=== PATIENT | male | born 1945 | race Caucasian/White ===

== ENCOUNTER 2021-05-17 05:57 | Outpatient (CLI) | payer MEDICARE, OTHER ==
[~2021-05-17] VITALS: Ht 175.3 cm; Wt 83.4 kg
[~2021-05-17 05:57] MED LIST: CHOLESTEROL PILL; CIPR500T78 PO; HYDR1TAB86 PO; LEVO500T69 PO; METR500T PO; SMV10T PO
[2021-05-17] MEDS ORDERED: MELO15TA39 PO (13:02)
[2021-05-17] MEDS ORDERED: CARB1TAB19 PO (13:02)
[2021-05-17] MEDS ORDERED: LISI10TA25 PO (13:03)
== END 2021-05-17 13:05 | disposition home or self-care (01) ==
LOC: PREOP 05:57
PROVIDERS: ATTEND Surgery
DX: Z01.818 Encounter for other preprocedural examination (principal)

== ENCOUNTER 2021-05-20 10:13 | Day surgery (SDC) | payer MEDICARE, OTHER ==
[~2021-05-20] VITALS: Ht 175.3 cm; Wt 83.4 kg
[2021-05-20] VITALS (11 sets, daily range): BP systolic 131–175; BP diastolic 66–96
[~2021-05-20 10:13] MED LIST changes: +CARB1TAB19 PO; +LISI10TA25 PO; +MELO15TA39 PO
[2021-05-20] MEDS: LACTATED RINGERS 1,000 ML IV PRN ×2 (10:52→12:28)
[2021-05-20] MEDS ORDERED: ceFAZolin 2 GM IV Premixed 50 ML IV ONE (11:00)
--- NOTE | 2021-05-20 11:09 | Progress Note-Pre Operative ---
Pre-Operative Progress Note H&P Reviewed The H&P was reviewed, patient examined and no changes noted. Date Seen by Provider: May 20, 2021 Time Seen by Provider: 11:00 Date H&P Reviewed: May 20, 2021 Time H&P Reviewed: 11:00 Pre-Operative Diagnosis: right inguinal hernia, screening o RAMIRO MURILLO MD May 20, 2021 11:09
[2021-05-20] MEDS ORDERED: HYDR-3817 PO (11:10)
--- NOTE | 2021-05-20 11:10 | Discharge Inst-Surgical ---
D/C Lap Instructions-LIDIA New, Converted, or Re-Newed RX: RX on Chart Follow Up Appt in 2 weeks Activity as tolerated No driving for 24 hours No driving while on pain medications Incentive Spirometry use every 2 hours while awake Regular Diet Symptoms to Report: Fever over 101 degree F, Nausea/Vomiting Infection Signs and Symptoms to report: Increased redness, Foul odor of wound, Increased drainage Bathing instructions: May shower Operative Area Clean/Dry; Keep incision clean/dry If any problems/questions: Contact your physician or go to Emergency Room RAMIRO MURILLO MD May 20, 2021 11:10
[2021-05-20] MEDS ORDERED: ACETAMINOPHEN 325 MG TABLET PO PRN (11:15)
[2021-05-20] MEDS ORDERED: morphine INJ 10 MG/ML 1ML (SYR OR VIAL) IVP PRN ×2 (11:15)
[2021-05-20] MEDS ORDERED: oxyCODONE/APAP 5/325MG (PERCOCET 5) TABLET PO PRN (11:15)
[2021-05-20] MEDS ORDERED: ONDANSETRON 4 MG/2 ML (SDV) Z0FRAN IVP PRN ×2 (11:15→14:15)
[2021-05-20] MEDS ORDERED: LIDOCAINE/EPI 1%-1:200,000 (XYLOCAINE) 30 ML VIAL ONE (11:20)
[2021-05-20] MEDS ORDERED: proPOfol 200 MG/20 ML (DIPRIVAN) VIAL IV ONE (12:13)
[2021-05-20] MEDS ORDERED: fentaNYL INJ 100 MCG/2 ML AMP ONE ×2 (12:13→13:40)
[2021-05-20] MEDS ORDERED: LIDOCAINE PF 2% 5 ML (XYLOCAINE) VIAL ONE (12:13)
[2021-05-20] MEDS ORDERED: morphine PF (DURAMORPH) 10 MG/10 ML AMP ONE (13:00)
[2021-05-20] MEDS ORDERED: GLYCOPYRROLATE 0.2 MG/ML (ROBINUL) 2 ML VIAL ONE (13:40)
[2021-05-20] MEDS ORDERED: NEOSTIGMINE 3 MG/3 ML VIAL ONE (13:40)
--- NOTE | 2021-05-20 13:50 | Progress Note-Post Operative ---
Post-Operative Progess Note Surgeon (s)/Dcs Engineer (s) Surgeon Dr. Hossein Otoole M.D. Dcs Engineer: Santiago Carrasco AIRPORT SCREENER Pre-Operative Diagnosis right inguinal hernia, screening colo Post-Operative Diagnosis right indirect reducible inguinal hernia, mild stage II external and internal hemorrhoids, mild sigmoid diverticulosis Procedure & Operative Findings Date of Procedure 05/20/21 Procedure Performed/Findings Laparoscopic right inguinal hernia repair with mesh, colonoscopy Anesthesia Type GET Estimated Blood Loss Estimated blood loss (mL): Minimal Specimens/Packing Specimens Removed None SANTIAGO CARRASCO AIRPORT SCREENER May 20, 2021 13:50
[2021-05-20] MEDS ORDERED: SEVOFLURANE (ULTANE) 15 ML INHAL SOLN ONE (13:55)
[2021-05-20] MEDS ORDERED: ROCURONIUM 50 MG/5 ML (ZEMURON) VIAL IV ONE (13:55)
[2021-05-20] MEDS ORDERED: morphine INJ 10 MG/ML 1ML (SYR OR VIAL) IVP ONE (14:15)
[2021-05-20] MEDS ORDERED: fentaNYL INJ 100 MCG/2 ML AMP IVP ONE (14:15)
--- NOTE | 2021-05-20 22:33 | OPERATIVE REPORT ---
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 POSTOPERATIVE DIAGNOSES: Reducible right indirect inguinal hernia, mild chronic stage II external and internal hemorrhoids, mild to moderate sigmoid diverticulosis. PROCEDURE: Laparoscopic reducible right inguinal hernia repair with mesh and colonoscopy. SURGEON: Ramiro Murillo MD ANESTHESIA: General endotracheal. ESTIMATED BLOOD LOSS: Minimal. FINDINGS: Reducible right indirect inguinal hernia, mild chronic stage II external and internal hemorrhoids, mild to moderate sigmoid diverticulosis. DISPOSITION: The patient tolerated the procedure well. INDICATIONS: The patient is a 75-year-old male known to us. He was referred over to us for symptomatic right inguinal hernia; however, he states that he has had for the past year; however, has grown larger in size and become painful, especially upon exertion. Upon examination, he was found to have a right inguinal hernia, which is tender to palpation; however, reducible. He is also in need of a followup screening colonoscopy. 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 DESCRIPTION OF PROCEDURE: The patient was brought to the operating room, laid supine on the table. After adequate IV pain and sedative medications and general endotracheal intubation, the abdomen was prepped and draped in standard surgical fashion. An area in the left lower abdominal quadrant was anesthetized using 1% lidocaine and a transverse skin incision made using a 15 blade. An 0 silk suture was applied to the medial aspect incision for retraction and a Veress needle inserted with low opening pressure of 0 mmHg. The abdomen was then insufflated to 15 mmHg pressure. The Veress needle removed and a 5 mm XL trocar placed followed by a 5 mm 45-degree angle laparoscope visualizing the peritoneal cavity. There were some omental adhesions towards the abdominal wall from his previous colectomy. There was a right indirect inguinal hernia identified, which was reducible. There was no left inguinal hernia component. Under direct visualization, we then proceeded to place an infraumbilical 10 mm port after the skin and peritoneal lining were anesthetized using 0.5% Marcaine with epinephrine and a transverse skin incision made using 15 blade. In a similar manner, a right lateral 5 mm port was placed. The patient was then placed in a Trendelenburg position. The peritoneal lining was then opened starting laterally towards the conjoined tendon and inguinal ligament laterally using the Sonicision. We then proceeded medially until Tato's ligament was identified. We then proceeded with inferior dissection encompassing the hernia sac as well as identified cord lipoma. The cord and its surrounding contents identified and spared throughout the process. Good hemostasis was observed. A medium size 3DMax polypropylene mesh was then placed into the defect and tacked to Tato's ligament with an AbsorbaTack into the inguinal ligament laterally. The peritoneal lining was then placed over the mesh and a few absorbable tacks placed to keep this in place with visualization of good hemostasis. The 10 mm port site fascia and peritoneum were then closed under direct visualization using a Rafa-Selene device and 0 Vicryl suture. The abdomen was desufflated and remaining ports removed. All skin incisions were closed using 4-0 Monocryl running subcuticular sutures. Wounds were then cleaned and covered with Dermabond. The patient was then placed in frog leg position and a digital rectal examination was performed, which revealed chronic stage II external and internal hemorrhoids, not actively edematous nor inflamed and no bleeding. Normal sphincter tone was felt and there were no palpable masses. Prostate gland was palpable and appeared normal. The endoscope was then intubated to the anus and rectum gently insufflated. The endoscope was then advanced through the valves of Lam of the rectum with no polyps or any neoplasms identified. Through the sigmoid colon, mild to moderate sigmoid diverticulosis identified. The endoscope was then advanced to the remainder of the descending, transverse to the ileocolonic anastomosis, which appeared normal with no recurrent lesions. The endoscope was slowly withdrawn while taking a second look and suctioning of residual air with no additional findings. The patient tolerated the procedure well. He will be instructed to do no heavy lifting or exertion for the next two weeks and to wear scrotal support for the same timeframe. We will also recommend a high fiber diet with at least 30 grams of fiber daily as well as significant amounts of water to promote soft stools on a daily basis. Due to his personal history of adenocarcinoma identified and a large polyp, we will recommend a followup colonoscopy in approximately 5 years. Job ID: [id number] DocumentID: [id number] Dictated Date: 05/20/2021 14:04:44 Heading And Priming Operator Date: 05/20/2021 22:32:29 Dictated By: RAMIRO MURILLO MD
== END 2021-05-20 15:55 | disposition home or self-care (01) ==
LOC: SDC 10:13
PROVIDERS: ATTEND Surgery
DX: Z12.11 Encounter for screening for malignant neoplasm of colon (principal); K40.90 Unilateral inguinal hernia, without obstruction or gangrene, not specified as recurrent; K64.1 Second degree hemorrhoids; K57.30 Diverticulosis of large intestine without perforation or abscess without bleeding; I10 Essential (primary) hypertension; M19.90 Unspecified osteoarthritis, unspecified site; E78.5 Hyperlipidemia, unspecified; R25.1 Tremor, unspecified; Z85.038 Personal history of other malignant neoplasm of large intestine; Z90.49 Acquired absence of other specified parts of digestive tract; Z79.1 Long term (current) use of non-steroidal anti-inflammatories (NSAID); Z79.899 Other long term (current) drug therapy
CPT/HCPCS: 49650; G0105; 87081

== ENCOUNTER → 2021-08-03 | Outpatient (CLI) | payer MEDICARE ==
[~2021-08-03] MED LIST changes: +HYDR-3817 PO
--- NOTE | 2021-08-03 11:30 | Diagnostic Imaging Report ---
PROCEDURE: CT right lower extremity without contrast. TECHNIQUE: Axially acquired CT was obtained through the right lower extremity without intravenous contrast. Coronal and sagittal reformations were also performed. Auto Exposure Controls were utilized during the CT exam to meet ALARA standards for radiation dose reduction. INDICATION: Posttraumatic osteoarthritis of the right ankle COMPARISON: 02/24/2014 FINDINGS: There is severe, end-stage osteoarthritis in the tibiotalar joint with complete joint space loss and articular surface remodeling, particularly medially. There is varus angulation of the hindfoot. There are severe degenerative change at the distal tibiofibular joint and talofibular impingement. There are numerous ossific fragments medial and lateral to the right ankle. There are severe degenerative changes in the posterior subtalar joint as well as moderate degenerative changes in the talonavicular joint. There is a small tibiotalar joint effusion. There is moderate generalized muscular atrophy about the right ankle. There appears to be partial tearing of the peroneus longus tendon with a large calcification in the peroneal tendon sheath, although the tendons and ligaments are suboptimally evaluated by CT. IMPRESSION: 1. 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 2. Partial tear of the peroneus longus tendon. Dictated by: Dictated on workstation # [id number]
== END ==
LOC: RAD 10:15
PROVIDERS: ATTEND Podiatrist Foot & Ankle Surgery
DX: M19.171 Post-traumatic osteoarthritis, right ankle and foot (principal); S96.811A Strain of other specified muscles and tendons at ankle and foot level, right foot, initial encounter
CPT/HCPCS: 73700

== ENCOUNTER 2021-08-11 13:06 | Outpatient (RCR) | payer MEDICARE | END 2021-08-11 15:01 | disposition home or self-care (01) | PROVIDERS: ATTEND Podiatrist Foot & Ankle Surgery | DX: M19.171 Post-traumatic osteoarthritis, right ankle and foot (principal) ==

== ENCOUNTER → 2021-08-26 | Outpatient (CLI) | payer MEDICARE ==
[2021-08-26 08:38] LABS: BASOPHILS % (AUTO) 1 % (0-10); EOSINOPHILS # (AUTO) 0.3 10^3/uL (0.0-0.3); EOSINOPHILS % (AUTO) 5 % (0-10); HEMATOCRIT 42 % (40-54); HEMOGLOBIN 13.7 g/dL (13.3-17.7); LYMPHOCYTES # (AUTO) 1.3 10^3/uL (1.0-4.0); LYMPHOCYTES % (AUTO) 23 % (12-44); MEAN CORPUSCULAR HEMOGLOBIN 31 pg (25-34); MEAN CORPUSCULAR HGB CONC 33 g/dL (32-36); MEAN CORPUSCULAR VOLUME 94 fL (80-99); MEAN PLATELET VOLUME 10.4 fL (9.0-12.2); MONOCYTES # (AUTO) 0.6 10^3/uL (0.0-1.0); MONOCYTES % (AUTO) 11 % (0-12); NEUTROPHILS # (AUTO) 3.4 10^3/uL (1.8-7.8); NEUTROPHILS % (AUTO) 60 % (42-75); PLATELET COUNT 204 10^3/uL (130-400); WHITE BLOOD COUNT 5.7 10^3/uL (4.3-11.0)
--- NOTE | 2021-08-26 08:46 | Diagnostic Imaging Report ---
INDICATION: Preop for ankle surgery. TIME OF EXAM: 8:40 AM No prior studies are available for comparison. FINDINGS: The heart size is normal. There is a large hiatal hernia. The lungs are clear. The pulmonary vascularity is normal. No infiltrate, effusion or pneumothorax is detected. IMPRESSION: Large hiatal hernia. No acute cardiopulmonary process is detected. Dictated by: Dictated on workstation # [id number]
[2021-08-26 08:55] LABS: CREATININE SERUM 0.84 MG/DL (0.60-1.30)
== END ==
LOC: CARD 08:30
PROVIDERS: ATTEND Family Medicine
DX: Z01.812 Encounter for preprocedural laboratory examination (principal); Z01.810 Encounter for preprocedural cardiovascular examination; K44.9 Diaphragmatic hernia without obstruction or gangrene
CPT/HCPCS: 36415; 71045; 80048; 85025; 93005

== ENCOUNTER → 2023-05-22 | Outpatient (CLI) | payer MEDICARE ==
[~2023-05-22] MED LIST changes: -CARB1TAB19 PO; +CARB1TAB32 PO
[2023-05-22 08:46] LABS: HEMATOCRIT 41 % (40-54); HEMOGLOBIN 13.6 g/dL (13.3-17.7); MEAN CORPUSCULAR HEMOGLOBIN 31 pg (25-34); MEAN CORPUSCULAR HGB CONC 33 g/dL (32-36); MEAN CORPUSCULAR VOLUME 94 fL (80-99); PLATELET COUNT 201 10^3/uL (130-400); WHITE BLOOD COUNT 5.6 10^3/uL (4.3-11.0)
[2023-05-22 09:05] LABS: ALBUMIN 3.8 GM/DL (3.2-4.5); BILIRUBIN,TOTAL 0.6 MG/DL (0.1-1.0); CALCIUM 8.7 MG/DL (8.5-10.1); CREATININE SERUM 0.79 MG/DL (0.60-1.30); POTASSIUM 4.1 MMOL/L (3.6-5.0); TOTAL PROTEIN 6.8 GM/DL (6.4-8.2)
== END ==
LOC: LAB 08:21
PROVIDERS: ATTEND Family Medicine
DX: I10 Essential (primary) hypertension (principal)
CPT/HCPCS: 36415; 80053; 80061; 85027